=== PATIENT | male | born 1990 | race Caucasian/White ===

== ENCOUNTER 2019-01-23 22:50 | Emergency (ER) | payer MEDICAID ==
[~2019-01-23] VITALS: Ht 175.3 cm; Wt 84.1 kg
[2019-01-23 22:52] VITALS: BP 142/79
[2019-01-24] MEDS ORDERED: HYDR-3965 PO (00:06)
== END 2019-01-24 01:11 | disposition home or self-care (01) ==
LOC: ER 22:52
DX: S90.31XA Contusion of right foot, initial encounter (principal); V49.88XA Car occupant (driver) (passenger) injured in other specified transport accidents, initial encounter; Y93.89 Activity, other specified; Y92.413 State road as the place of occurrence of the external cause; Y99.9 Unspecified external cause status
CPT/HCPCS: 29515; 73630; 99284